=== PATIENT | female | born 1985 | race Caucasian/White ===

== ENCOUNTER 2016-07-29 06:25 | Emergency (ER) | payer BC, OTHER ==
[~2016-07-29] VITALS: Ht 160 cm; Wt 63.5 kg
[~2016-07-29 06:25] MED LIST: ACET50TA PO; FERR325T3 PO; IBUP-1114 PO; PRENTAB9 PO
[2016-07-29] MEDS ORDERED: MORPHINE 4 MG/ML 1ML SYRINGE IV ONE (07:30)
[2016-07-29] MEDS ORDERED: ONDANSETRON 4MG/2ML VIAL (J2405) IV ONE (07:30)
[2016-07-29 07:56] LABS: BASO % 0.2 % (0.0-1.0); EOS % 0.4 % (0.0-3.0); LARGE UNSTAINED CELL # 0.1 K/mm3 (0.0-0.4); LARGE UNSTAINED CELL % 1.1 % (0.0-4.0); LYMPH # 0.9 K/mm3 (1.5-4.5); LYMPH % 7.9 % (24.0-44.0); MEAN CORPUSCULAR HEMOGLOBIN 28.5 pg (27.0-33.0); MEAN CORPUSCULAR HGB CONC 33.7 g/dl (32.0-36.5); MEAN CORPUSCULAR VOLUME 84.6 fl (80.0-96.0); MONO # 0.5 K/mm3 (0.0-0.8); MONO % 4.4 % (0.0-5.0); NEUTROPHILS % 85.9 % (36.0-66.0); PLATELET COUNT, AUTOMATED 161 k/mm3 (150-450); RED CELL DISTRIBUTION WIDTH 12.5 % (11.5-14.5); WHITE BLOOD COUNT 10.5 K/mm3 (4.0-10.0)
[2016-07-29 08:02] LABS: CONTROL LINE HCG INT CTR LINE PRESENT
[2016-07-29 08:10] LABS: ALBUMIN 3.4 GM/DL (3.2-5.2); ALBUMIN/GLOBULIN RATIO 0.92 (1.00-1.93); ALKALINE PHOSPHATASE 44 U/L (45-117); ALT/SGPT 11 U/L (12-78); ANION GAP 8 MEQ/L (8-16); AST/SGOT 14 U/L (15-37); BILIRUBIN,DIRECT 0.2 MG/DL (0.0-0.2); BILIRUBIN,TOTAL 0.7 MG/DL (0.2-1.0); BLOOD UREA NITROGEN 8 MG/DL (7-18); CALCIUM LEVEL 8.7 MG/DL (8.5-10.1); CARBON DIOXIDE LEVEL 24 MEQ/L (21-32); CHLORIDE LEVEL 103 MEQ/L (98-107); GLOMERULAR FILTRATION RATE > 60.0 (>60); GLUCOSE, FASTING 99 MG/DL (70-105); POTASSIUM SERUM 3.7 MEQ/L (3.5-5.1); SODIUM LEVEL 135 MEQ/L (136-145); TOTAL PROTEIN 7.1 GM/DL (6.4-8.2)
--- NOTE | 2016-07-29 09:52 | REP ---
Flank pain, pleuritic chest pain. COMPARISON: Chest 11/24/2011 FINDINGS: Supine and upright views of the abdomen show the intestinal gas pattern to be nonspecific. Gas and stool is seen throughout the colon within the rectosigmoid region. The organ silhouettes insofar as delineated appear unremarkable. No abdominal calcific densities are seen within the abdomen or pelvis. The accompanying single frontal view of the chest shows no free subdiaphragmatic air, cardiomegaly, infiltrates or effusions. There are some vague right upper quadrant calcifications which may at least in part be chondrocalcifications. Exact etiology uncertain. IMPRESSION: Nonspecific intestinal gas pattern. Signed by Froy Bolanos DO 07/29/2016 10:20 A
[2016-07-29] MEDS ORDERED: CIPROFLOXACIN 400 MG in APPROPRIATE DILUENT 1 EA IV ONE (10:15)
--- NOTE | 2016-07-29 10:24 | REP ---
REASON: Left renal colic. COMPARISON: None. The lung bases are clear. Limited evaluation of a solid intra-abdominal organs and gallbladder show no gross abnormalities. There is no nephroureterolithiasis, hydronephrosis, or hydroureter. There are no urinary bladder calcifications. Limited evaluation of the bowel loops and their mesenteries show no gross abnormalities. There is no free fluid or free air in the abdomen. There is a trace amount of free pelvic fluid, probably physiologic. Bone window technique throughout the examination shows the osseous structures to be within normal limits. IMPRESSION: CT findings are within normal limits. There is incidental bilateral L5 spondylolysis. Signed by Froy Bolanos DO 07/29/2016 11:04 A
[2016-07-29] MEDS ORDERED: ACETAMINOPHEN 325 MG TAB PO ONE (12:15)
[2016-07-29] MEDS ORDERED: CIPR500T89 PO (12:40)
[2016-07-29] MEDS ORDERED: NORCOTAB PO (12:40)
[2016-07-29 13:57] VITALS: BP 105/55
== END 2016-07-29 14:05 | disposition home or self-care (01) ==
LOC: M ED 08:18
DX: N10 Acute pyelonephritis (principal)
CPT/HCPCS: 74022; 74176; 80048; 80076; 81001; 83690; 84703; 85025; 85379; 93041; 96365; 96366; 96375; 99285; J0744; J2405

== ENCOUNTER 2017-02-02 03:30 | Emergency (ER) | payer BC, OTHER ==
[~2017-02-02] VITALS: Ht 160 cm; Wt 65.9 kg
[~2017-02-02 03:30] MED LIST changes: +CIPR-249 PO; +NORCOTAB PO
[2017-02-02] MEDS ORDERED: DULO30CA PO (03:38)
[2017-02-02] MEDS ORDERED: diphenhydrAMINE INJ 50MG/ML VIAL (J1200) IV STA (04:20)
[2017-02-02] MEDS ORDERED: TETRACAINE 0.5% OPHTH SOLN 4ML OD ONE (04:30)
[2017-02-02] MEDS ORDERED: dexameTHASONE 20 MG/5 ML VIAL (J1100) IV ONE (04:30)
[2017-02-02] MEDS ORDERED: ACETAMINOPHEN 325 MG TAB PO ONE (04:30)
[2017-02-02] MEDS ORDERED: PRED20TA PO (04:36)
[2017-02-02 05:12] VITALS: BP 125/85
== END 2017-02-02 05:13 | disposition home or self-care (01) ==
LOC: M ED 03:30
DX: H11.421 Conjunctival edema, right eye (principal); H05.221 Edema of right orbit; F33.9 Major depressive disorder, recurrent, unspecified; Z79.899 Other long term (current) drug therapy; Z91.030 Bee allergy status
CPT/HCPCS: 96374; 96375; 99284; J1100; J1200

== ENCOUNTER → 2017-07-12 | Outpatient (CLI) | payer BC, OTHER ==
[2017-07-12 13:29] LABS: HEMATOCRIT 41.8 % (36.0-47.0); HEMOGLOBIN 14.1 g/dl (12.0-15.5); MEAN CORPUSCULAR HEMOGLOBIN 29.5 pg (27.0-33.0); MEAN CORPUSCULAR HGB CONC 33.7 g/dl (32.0-36.5); MEAN CORPUSCULAR VOLUME 87.4 fl (80.0-96.0); PLATELET COUNT, AUTOMATED 258 10^3/uL (150-450); RED BLOOD COUNT 4.78 10^6/uL (4.00-5.40); RED CELL DISTRIBUTION WIDTH 13.2 % (11.5-14.5); WHITE BLOOD COUNT 4.9 10^3/uL (4.0-10.0)
[2017-07-12 13:46] LABS: ALBUMIN 4.2 GM/DL (3.2-5.2); ALBUMIN/GLOBULIN RATIO 1.17 (1.00-1.93); ALKALINE PHOSPHATASE 55 U/L (45-117); ALT/SGPT 15 U/L (12-78); ANION GAP 6 MEQ/L (8-16); AST/SGOT 20 U/L (7-37); BILIRUBIN,TOTAL 0.9 MG/DL (0.2-1.0); BLOOD UREA NITROGEN 10 MG/DL (7-18); CALCIUM LEVEL 8.8 MG/DL (8.5-10.1); CARBON DIOXIDE LEVEL 28 MEQ/L (21-32); CHLORIDE LEVEL 105 MEQ/L (98-107); CREATININE FOR GFR 0.81 MG/DL (0.55-1.30); GLOMERULAR FILTRATION RATE > 60.0 (>60); GLUCOSE, FASTING 84 MG/DL (70-100); POTASSIUM SERUM 4.4 MEQ/L (3.5-5.1); SODIUM LEVEL 139 MEQ/L (136-145); TOTAL PROTEIN 7.8 GM/DL (6.4-8.2)
== END ==
LOC: M SMT 09:54
DX: F41.1 Generalized anxiety disorder (principal); Z13.0 Encounter for screening for diseases of the blood and blood-forming organs and certain disorders involving the immune mechanism
CPT/HCPCS: 84443

== ENCOUNTER → 2018-03-18 | Outpatient (CLI) | payer BC, OTHER ==
[2018-03-18 19:10] LABS: BASO % 0.3 % (0.0-1.0); EOS # 0.1 10^3/uL (0.0-0.50); EOS % 1.2 % (0.0-3.0); HEMOGLOBIN 14.1 g/dl (12.0-15.5); IMMATURE GRANULOCYTE % 0.2 % (0-3.0); LYMPH # 1.8 10^3/uL (1.5-4.5); LYMPH % 30.1 % (24.0-44.0); MEAN CORPUSCULAR HEMOGLOBIN 29.6 pg (27.0-33.0); MEAN CORPUSCULAR HGB CONC 34.4 g/dl (32.0-36.5); MEAN CORPUSCULAR VOLUME 86.1 fl (80.0-96.0); MONO # 0.3 10^3/uL (0.0-0.8); MONO % 5.2 % (0.0-5.0); NEUTROPHILS # 3.7 10^3/uL (1.8-7.7); PLATELET COUNT, AUTOMATED 249 10^3/uL (150-450); RED BLOOD COUNT 4.76 10^6/uL (4.00-5.40); RED CELL DISTRIBUTION WIDTH 12.4 % (11.5-14.5); WHITE BLOOD COUNT 5.9 10^3/uL (4.0-10.0)
[2018-03-18 19:25] LABS: ALBUMIN/GLOBULIN RATIO 1.29 (1.00-1.93); ALKALINE PHOSPHATASE 48 U/L (45-117); ALT/SGPT 16 U/L (12-78); ANION GAP 10 MEQ/L (8-16); AST/SGOT 17 U/L (7-37); BILIRUBIN,TOTAL 0.9 MG/DL (0.2-1.0); BLOOD UREA NITROGEN 9 MG/DL (7-18); CALCIUM LEVEL 8.7 MG/DL (8.5-10.1); CARBON DIOXIDE LEVEL 27 MEQ/L (21-32); CHLORIDE LEVEL 100 MEQ/L (98-107); CREATININE FOR GFR 0.88 MG/DL (0.55-1.30); FREE T4 1.07 NG/DL (0.76-1.46); GLOMERULAR FILTRATION RATE > 60.0 (>60); GLUCOSE, FASTING 68 MG/DL (70-100); POTASSIUM SERUM 4.1 MEQ/L (3.5-5.1); SODIUM LEVEL 137 MEQ/L (136-145); TOTAL 25(OH) VITAMIN D 34.7 NG/ML (30.0-100.0); TOTAL PROTEIN 7.1 GM/DL (6.4-8.2)
== END ==
LOC: M SMT 11:16
DX: E55.9 Vitamin D deficiency, unspecified (principal); Z13.0 Encounter for screening for diseases of the blood and blood-forming organs and certain disorders involving the immune mechanism; Z13.29 Encounter for screening for other suspected endocrine disorder
CPT/HCPCS: 84443

== ENCOUNTER → 2018-04-13 | Outpatient (CLI) | payer BC, OTHER ==
[~2018-04-13] MED LIST changes: -ACET50TA PO; +DULO30CA PO; +MAPA500T2 PO; +PRED20TA PO
--- NOTE | 2018-04-13 10:10 | REP ---
Clinical: Trauma/contusion. Technique: AP and lateral views of the right tibia / fibula. Findings: There is an acute oblique fracture of the mid/distal fibular shaft just above the orthopedic plate for prior fixation. No other fracture dislocation identified. Impression: Acute oblique fracture of the mid/distal fibular shaft above the level of orthopedic plate from old fixation. Electronically Signed by Mac Cardoso MD 04/13/2018 10:01 A
--- NOTE | 2018-04-16 11:47 | REP ---
Clinical: Trauma. Contusion. Technique: AP, lateral, bilateral oblique views of the right ankle. Findings: There is an acute oblique fracture of the mid fibular shaft just above the level of the plate and screws for prior fibular repair. No further acute fracture or dislocation identified. Old fractures of the distal fibular and medial malleolus noted. Impression: An acute oblique fracture of the mid fibular shaft just above the level of the orthopedic plate from prior fixation. Electronically Signed by Mac Cardoso MD 04/13/2018 09:59 A
== END ==
LOC: M WUC 09:40
PROVIDERS: ATTEND Physician Assistant
DX: S82.431A Displaced oblique fracture of shaft of right fibula, initial encounter for closed fracture (principal); X58.XXXA Exposure to other specified factors, initial encounter; Y92.9 Unspecified place or not applicable

== ENCOUNTER → 2018-06-12 | Outpatient (REF) | payer BC, OTHER ==
[2018-06-14 14:22] LABS: HPV HYBRID CAPTURE II Negative (Negative)
== END ==
LOC: M LAB REF 17:22
PROVIDERS: ATTEND Advanced Practice Midwife
DX: Z12.4 Encounter for screening for malignant neoplasm of cervix (principal); Z11.51 Encounter for screening for human papillomavirus (HPV)
CPT/HCPCS: 87624; G0123

== ENCOUNTER 2018-11-06 20:43 | Emergency (ER) | payer BC, OTHER ==
[~2018-11-06] VITALS: Ht 160 cm; Wt 61.4 kg
[~2018-11-06 20:43] MED LIST changes: -DULO30CA PO; +DULO30CA9 PO; +HYDR-3715 PO; -NORCOTAB PO
[2018-11-06] MEDS ORDERED: TRAZ-252 (20:48)
[2018-11-06] MEDS ORDERED: DULO1CAP5 (20:48)
[2018-11-06] MEDS ORDERED: AMPH1TAB2 (20:48)
[2018-11-06] MEDS ORDERED: EMLA CREAM 5GM (LIDOCAINE/PRILOCAINE) TOP ONE (21:45)
[2018-11-06] MEDS ORDERED: LIDOCAINE W/EPINEPHRINE 1% 20ML VIAL SC ONE (21:45)
--- NOTE | 2018-11-06 23:55 | REPVR ---
EXAM: CT Head Without Contrast EXAM DATE/TIME: 11/06/2018 11:03 PM CLINICAL HISTORY: 33 years old, female; Injury or trauma; Fall; Initial encounter; Bleeding / hemorrhage and blunt trauma (contusions or hematomas); Additional info: Trauma, right parietal TECHNIQUE: Imaging protocol: Computed tomography images of the head without contrast. Radiation optimization: All CT scans at this facility use at least one of these dose optimization techniques: automated exposure control; mA and/or kV adjustment per patient size (includes targeted exams where dose is matched to clinical indication); or iterative reconstruction. COMPARISON: No relevant prior studies available. FINDINGS: Brain: Ventricles, basilar cisterns, and sulci are normal in size for age. No intracranial mass, mass effect or midline shift. No acute intracranial hemorrhage. No focal effacement of cortical sulci to indicate acute cortical infarct. Ventricles: Normal. No ventriculomegaly. Bones/joints: No calvarial fracture or destructive process. Sinuses: Imaged paranasal sinuses are clear. Mastoid air cells: Mastoid air cells are normally aerated. Orbits: Imaged orbits are unremarkable. Soft tissues: Right posterior frontal vertex scalp laceration and extracranial scalp hematoma. IMPRESSION: Right posterior frontal vertex scalp injury. No underlying acute intracranial abnormality. Electronically signed by: Stephen Wells On 11/06/2018 23:54:42 PM
[2018-11-06] MEDS ORDERED: NAPR-837 PO (23:59)
[2018-11-07] MEDS ORDERED: ACETAMINOPHEN TAB 650MG DOSE (2X325MG) PO ONE
[2018-11-07] MEDS ORDERED: traMADol 50 MG TAB PO ONE
[2018-11-07 00:10] VITALS: BP 106/63
--- NOTE | 2018-11-07 01:57 | REP ---
Clinical: Trauma. Technique: AP, lateral, bilateral oblique views left foot . Findings: The osseous structures and joint spaces are intact and normal. There is no evidence for acute fracture or dislocation. Surrounding soft tissues are unremarkable. No subcutaneous emphysema or radiodense foreign body. Impression: Normal left foot series . No acute fracture or dislocation. Electronically Signed by Mac Cardoso MD 11/07/2018 01:50 A
--- NOTE | 2018-11-07 01:59 | REP ---
Clinical: thoracic pain. Technique: AP, lateral, and swimmers views. Findings: Alignment and kyphosis is maintained. Vertebral bodies intact. No acute fracture / compression injury or subluxation. No degenerative changes. Paravertebral soft tissues are normal. Impression: Normal thoracic spine series. Electronically Signed by Mac Cardoso MD 11/07/2018 01:50 A
--- NOTE | 2018-11-07 02:04 | REP ---
Clinical: Trauma. Technique: AP and axial views of the right scapula. Findings: No acute fracture or dislocation. Skeletal structures, joint spaces, and surrounding soft tissues are normal. Impression: No acute right scapular fracture noted. Electronically Signed by Mac Cardoso MD 11/07/2018 01:56 A
== END 2018-11-07 00:15 | disposition home or self-care (01) ==
LOC: M ED 20:43
DX: S01.01XA Laceration without foreign body of scalp, initial encounter (principal); S90.32XA Contusion of left foot, initial encounter; S43.401A Unspecified sprain of right shoulder joint, initial encounter; W11.XXXA Fall on and from ladder, initial encounter; Y92.9 Unspecified place or not applicable; Y93.9 Activity, unspecified; Y99.9 Unspecified external cause status; F41.9 Anxiety disorder, unspecified; Z79.899 Other long term (current) drug therapy; Z91.030 Bee allergy status

== ENCOUNTER → 2019-06-05 | Outpatient (CLI) | payer BC, OTHER ==
[~2019-06-05] MED LIST changes: +AMPH1TAB2; +DULO1CAP5; +NAPR-837 PO; +TRAZ-252
[2019-06-05 18:11] LABS: BASO # 0.1 10^3/uL (0.0-0.2); BASO % 0.7 % (0.0-1.0); EOS # 0.1 10^3/uL (0.0-0.5); EOS % 0.7 % (0.0-3.0); HEMATOCRIT 41.4 % (36.0-47.0); HEMOGLOBIN 13.8 g/dl (12.0-15.5); LYMPH # 2.1 10^3/uL (1.5-5.0); LYMPH % 30.1 % (24.0-44.0); MEAN CORPUSCULAR HEMOGLOBIN 29.7 pg (27.0-33.0); MEAN CORPUSCULAR HGB CONC 33.3 g/dl (32.0-36.5); MONO # 0.3 10^3/uL (0.0-0.8); MONO % 4.7 % (0.0-5.0); NEUTROPHILS # 4.3 10^3/uL (1.5-8.5); NEUTROPHILS % 63.7 % (36.0-66.0); PLATELET COUNT, AUTOMATED 250 10^3/uL (150-450); RED BLOOD COUNT 4.65 10^6/uL (4.00-5.40); WHITE BLOOD COUNT 6.8 10^3/uL (4.0-10.0)
[2019-06-05 18:21] LABS: ALBUMIN 4.1 GM/DL (3.2-5.2); ALT/SGPT 22 U/L (12-78); BILIRUBIN,TOTAL 0.7 MG/DL (0.2-1.0); BLOOD UREA NITROGEN 16 MG/DL (7-18); C REACTIVE PROTEIN QUANTITATIV < 0.30 MG/DL (0.00-0.30); CALCIUM LEVEL 8.8 MG/DL (8.5-10.1); CARBON DIOXIDE LEVEL 27 MEQ/L (21-32); CHLORIDE LEVEL 108 MEQ/L (98-107); FREE T4 1.03 NG/DL (0.76-1.46); GLOMERULAR FILTRATION RATE > 60.0 (>60); GLUCOSE, FASTING 86 MG/DL (70-100); POTASSIUM SERUM 3.8 MEQ/L (3.5-5.1); RHEUMATOID FACTOR QUANT < 10.0 IU/ML (<15.0); SODIUM LEVEL 140 MEQ/L (136-145); THYROID STIMULATING HORMONE 0.843 uIU/ML (0.358-3.740)
[2019-06-05 18:24] LABS: TOTAL 25(OH) VITAMIN D 52.5 NG/ML (30.0-100.0)
[2019-06-05 18:44] LABS: ERYTHROCYTE SEDIMENTATION RATE 3 mm/hr (0-20)
== END ==
LOC: M PLALAB 14:00
PROVIDERS: ATTEND Physician Assistant
DX: M25.50 Pain in unspecified joint (principal); E55.9 Vitamin D deficiency, unspecified

== ENCOUNTER → 2019-06-23 | Outpatient (CLI) | payer OTHER | LOC: M OUTALCOH 08:00 | PROVIDERS: ATTEND Psychiatry & Neurology Addiction Medicine | DX: F10.20 Alcohol dependence, uncomplicated (principal) ==

== ENCOUNTER → 2019-07-15 | Outpatient (RCR) | payer OTHER | LOC: M OUTALCOH 07-01 10:54 | PROVIDERS: ATTEND Psychiatry & Neurology Addiction Medicine | DX: F10.20 Alcohol dependence, uncomplicated (principal) ==

== ENCOUNTER 2019-07-21 14:00 | Outpatient (RCR) | payer OTHER | END 2019-08-14 | LOC: M OUTALCOH 14:00 | PROVIDERS: ATTEND Psychiatry & Neurology Addiction Medicine | DX: F10.20 Alcohol dependence, uncomplicated (principal) ==

== ENCOUNTER → 2019-07-23 | Outpatient (CLI) | payer OTHER ==
[2019-07-23 08:40] LABS: ALBUMIN 3.9 GM/DL (3.2-5.2); ALT/SGPT 24 U/L (12-78); BILIRUBIN,TOTAL 0.4 MG/DL (0.2-1.0); BLOOD UREA NITROGEN 12 MG/DL (7-18); CALCIUM LEVEL 9.3 MG/DL (8.5-10.1); CARBON DIOXIDE LEVEL 29 MEQ/L (21-32); CHLORIDE LEVEL 103 MEQ/L (98-107); CREATININE FOR GFR 0.85 MG/DL (0.55-1.30); ETHYL ALCOHOL (ETHANOL) 0.003 % (0.000-0.010); GLOMERULAR FILTRATION RATE > 60.0 (>60); GLUCOSE, FASTING 115 MG/DL (70-100); POTASSIUM SERUM 4.2 MEQ/L (3.5-5.1); SODIUM LEVEL 137 MEQ/L (136-145); TOTAL PROTEIN 7.1 GM/DL (6.4-8.2)
== END ==
LOC: M LAB 07:51
PROVIDERS: ATTEND Physician Assistant
DX: Z69.11 Encounter for mental health services for victim of spousal or partner abuse (principal)
CPT/HCPCS: 36415; 80053; G0480

== ENCOUNTER → 2019-11-03 | Outpatient (CLI) | payer BC ==
--- NOTE | 2019-11-03 15:00 | REPMRS ---
Patient History The patient states she had a clinical breast exam in October 2019. Family history of non hodgkin's lymphoma at age 17 in son. Diagnostic Bilateral Mammo: November 03, 2019 - Exam #: [id number] Bilateral CC and MLO view(s) were taken. Technologist: Roxanna Rios, Technologist FINDINGS: The breast tissue is heterogeneously dense. This may lower the sensitivity of mammography. The Volpara volumetric breast density category is: C. There are a few scattered benign secretory calcifications bilaterally. There is no evidence of dominant mass, architectural distortion, or grouped microcalcification typical of malignancy. 3-D tomosynthesis shows no additional findings. Assessment: BI-RADS/ACR category 2 mammogram. Benign Findings. Recommendation Routine screening mammogram of both breasts in 1 year (for women over age 40). This patient's Lifetime Breast Cancer RIsk is estimated at 9.2 %. This mammogram was interpreted with the aid of an FDA-approved computer-aided dectection system. Electronically Signed By: Angel Mcpherson MD 11/03/19 [id number]
== END ==
LOC: M WHC 14:12
PROVIDERS: ATTEND Advanced Practice Midwife
DX: Z12.31 Encounter for screening mammogram for malignant neoplasm of breast (principal); N64.3 Galactorrhea not associated with childbirth; Z80.7 Family history of other malignant neoplasms of lymphoid, hematopoietic and related tissues
CPT/HCPCS: 77066; G0279

== ENCOUNTER → 2020-01-05 | Outpatient (CLI) | payer BC, OTHER ==
--- NOTE | 2020-01-14 10:01 | REP ---
SACRUM AND COCCYX SERIES CLINICAL: Contusion TECHNIQUE: AP and lateral views of the sacrum and coccyx. FINDINGS: Lateral view demonstrates fragmented appearance to the sacrococcygeal region some of which appears well-corticated. These findings are nonspecific and may represent old injury rather than acute injury, although correlation is required. Bilateral sacroiliac joints appear intact. Sacral ala appear intact. IMPRESSION: Somewhat fragmented appearance to the distal sacrum and coccyx may represent old versus acute injury. MTDD
--- NOTE | 2020-01-14 10:02 | REP ---
PELVIC RADIOGRAPH CLINICAL: Contusion. TECHNIQUE: Single AP view of the pelvis. FINDINGS: Osseous structures are intact. Bilateral sacroiliac joints and hip joints are symmetric and normal. No acute fracture or dislocation. No subcutaneous emphysema or foreign body. IMPRESSION: Normal pelvic radiograph. MTDD
--- NOTE | 2020-01-14 10:03 | REP ---
LUMBOSACRAL SPINE SERIES CLINICAL: Contusion to the lower back. TECHNIQUE: AP, lateral, bilateral oblique, and coned down views of the lumbosacral spine. FINDINGS: Alignment and lordosis maintained. Vertebral bodies intact. No acute fracture/compression injury or subluxation. IMPRESSION: Normal lumbosacral spine series. No evidence for acute fracture/compression injury or subluxation. MTDD
== END ==
LOC: M WUC 15:54
PROVIDERS: ATTEND Physician Assistant
DX: S30.0XXA Contusion of lower back and pelvis, initial encounter (principal); X58.XXXA Exposure to other specified factors, initial encounter; Y92.89 Other specified places as the place of occurrence of the external cause

== ENCOUNTER → 2020-04-07 | Outpatient (CLI) | payer BC, OTHER ==
[~2020-04-07] MED LIST changes: +IBUP80TA PO; +VITAPRTA PO
--- NOTE | 2020-04-14 11:42 | ECHO ---
DATE OF PROCEDURE: 04/07/2020 Age: 34 Gender: Female Height: Weight: REFERRING PHYSICIAN: Frederic Darden PA-C PATIENT LOCATION: Outpatient. REASON FOR STUDY: Hypermobility syndrome, aortic root dilatation. 2D MEASUREMENTS: IVS 0.8 cm LV 3.9 cm LVPW 0.8 cm LA 2.9 cm Aorta/aortic root 3.2 cm IVC 1.4 cm DOPPLER MEASUREMENT Peak velocity across the aortic valve 0.99 msec Peak velocity across the LVOT 0.97 msec Mitral E 0.86 Mitral A 0.49 with a ratio of 1.7 Maximum tricuspid valve velocity 2.2 msec 2D COMMENTS: * Normal left ventricle size, wall thickness, and normal global left ventricular systolic function. The estimated left ventricular systolic ejection fraction is 60% to 65%. * Normal left atrium. Normal right atrium and right ventricle. * The atrial septum appeared to be normal without evidence of defect or shunt. * Normal aortic root. * No pericardial effusion seen. * The aortic valve, mitral valve, tricuspid valve, and pulmonic valve appear to be normal. The proximal pulmonary artery branches were not well visualized. * The inferior vena cava was normal in size. Central venous pressure is most likely normal. MTDD
== END ==
LOC: M CARPUL 09:11
PROVIDERS: ATTEND Physician Assistant
DX: M35.7 Hypermobility syndrome (principal)

== ENCOUNTER 2020-11-22 12:58 | Emergency (ER) | payer BC, OTHER ==
[~2020-11-22] VITALS: Ht 160 cm; Wt 63.3 kg
[2020-11-22] MEDS ORDERED: CITA20TA7 (13:17)
[2020-11-22] MEDS ORDERED: NS 1,000 ML IV ONE ×2 (16:40)
[2020-11-22 18:01] LABS: HEMATOCRIT 38.6 % (36.0-47.0); HEMOGLOBIN 13.3 g/dl (12.0-15.5); MEAN CORPUSCULAR HEMOGLOBIN 31.3 pg (27.0-33.0); MEAN CORPUSCULAR HGB CONC 34.5 g/dl (32.0-36.5); MEAN CORPUSCULAR VOLUME 90.8 fl (80.0-96.0); PLATELET COUNT, AUTOMATED 197 10^3/uL (150-450); RED BLOOD COUNT 4.25 10^6/uL (4.00-5.40); WHITE BLOOD COUNT 3.7 10^3/uL (4.0-10.0)
[2020-11-22 18:32] LABS: ALBUMIN 3.7 GM/DL (3.2-5.2); ALT/SGPT 56 U/L (12-78); BILIRUBIN,TOTAL 0.7 MG/DL (0.2-1.0); BLOOD UREA NITROGEN 10 MG/DL (7-18); CARBON DIOXIDE LEVEL 31 MEQ/L (21-32); CHLORIDE LEVEL 101 MEQ/L (98-107); CREATININE FOR GFR 0.61 MG/DL (0.55-1.30); GLOMERULAR FILTRATION RATE > 60.0 (>60); GLUCOSE, FASTING 79 MG/DL (70-100); MAGNESIUM LEVEL 2.1 MG/DL (1.8-2.4); POTASSIUM SERUM 3.4 MEQ/L (3.5-5.1); SODIUM LEVEL 139 MEQ/L (136-145)
[2020-11-22] MEDS ORDERED: POTASSIUM CHLORIDE 10 MEQ SR TABLET PO ONE (18:45)
--- NOTE | 2020-11-22 19:26 | ECGEPIP ---
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
[2020-11-22 20:00] VITALS: BP 159/89
[2020-11-22] MEDS ORDERED: POTA20TA6 PO (20:30)
== END 2020-11-22 20:49 | disposition home or self-care (01) ==
LOC: M ED 12:58
DX: E86.0 Dehydration (principal); E87.6 Hypokalemia; F33.9 Major depressive disorder, recurrent, unspecified; Z79.899 Other long term (current) drug therapy; Z91.030 Bee allergy status

== ENCOUNTER 2020-12-28 14:03 | Emergency (ER) | payer BC, OTHER ==
[~2020-12-28] VITALS: Ht 160 cm; Wt 67.7 kg
[~2020-12-28 14:03] MED LIST changes: +CITA20TA7; +POTA20TA6 PO
[2020-12-28 19:14] LABS: RSV AMPLIFICATION NEGATIVE (NEGATIVE)
[2020-12-28] MEDS ORDERED: NS 1,000 ML IV ONE (19:15)
[2020-12-28] MEDS ORDERED: KETOROLAC 30 MG/ML 1ML VIAL IV ONE (19:15)
[2020-12-28] MEDS ORDERED: ONDANSETRON 4MG/2ML VIAL IV ONE (19:15)
[2020-12-28 20:37] LABS: BASO # 0.1 10^3/uL (0.0-0.2); BASO % 0.5 % (0.0-1.0); EOS % 0.1 % (0.0-3.0); HEMATOCRIT 49.4 % (36.0-47.0); HEMOGLOBIN 16.4 g/dl (12.0-15.5); LYMPH # 1.1 10^3/uL (1.5-5.0); LYMPH % 11.4 % (24.0-44.0); MEAN CORPUSCULAR HEMOGLOBIN 30.9 pg (27.0-33.0); MEAN CORPUSCULAR HGB CONC 33.2 g/dl (32.0-36.5); MONO # 0.5 10^3/uL (0.0-0.8); MONO % 5.6 % (2.0-8.0); NEUTROPHILS # 7.7 10^3/uL (1.5-8.5); PLATELET COUNT, AUTOMATED 299 10^3/uL (150-450); RED BLOOD COUNT 5.31 10^6/uL (4.00-5.40); WHITE BLOOD COUNT 9.3 10^3/uL (4.0-10.0)
--- NOTE | 2020-12-28 20:44 | REPVR ---
PROCEDURE INFORMATION: Exam: US Abdomen, Limited; Right Upper Quadrant Exam date and time: 12/28/2020 8:07 PM Age: 35 years old Clinical indication: Nausea and vomiting; Additional info: Ruq abd pain, nv TECHNIQUE: Imaging protocol: US abdomen. Real time ultrasound with image documentation. Limited exam focused on the right upper quadrant. COMPARISON: CT ABD PELVIS W/O CONTRAST 07/29/2016 9:47 AM FINDINGS: Liver: Normal. No masses. Gallbladder: Normal. No gallstones. There is no gallbladder wall thickening. Common bile duct: The common bile duct measures 3 mm. No mass or choledocholithiasis. Pancreas: Visualized pancreas is unremarkable. Right kidney: Right kidney measures 10 x 5.2 x 4.2 cm. IMPRESSION: Unremarkable scan. No acute findings. Electronically signed by: Yasir Lockett On 12/28/2020 20:44:11 PM
[2020-12-28 20:59] LABS: ALBUMIN 4.7 GM/DL (3.2-5.2); BILIRUBIN,DIRECT 0.2 MG/DL (0.0-0.2); BILIRUBIN,TOTAL 0.7 MG/DL (0.2-1.0)
[2020-12-28 21:22] LABS: POTASSIUM SERUM 5.3 MEQ/L (3.5-5.1)
[2020-12-28] MEDS ORDERED: PANTOPRAZOLE 40MG VIAL (C9113 PER 1) IV ONE (23:35)
[2020-12-28] MEDS ORDERED: GI COCKTAIL 50ML BTL(HYOSCYAMINE/MAALOX/LIDOCAINE VISCOUS)(1:3:1) PO ONE (23:35)
[2020-12-28] MEDS ORDERED: SUCRALFATE 1 GM TAB PO ONE (23:35)
--- NOTE | 2020-12-28 23:50 | REPVR ---
PROCEDURE INFORMATION: Exam: XR Chest Exam date and time: 12/28/2020 11:05 PM Age: 35 years old Clinical indication: Shortness of breath; Additional info: SOB, cp TECHNIQUE: Imaging protocol: XR of the chest. Views: 1 view. COMPARISON: CR Abdomen,Flat Upright,PA CHEST 07/29/2016 8:44 AM FINDINGS: Lungs: Unremarkable. No consolidation. Pleural spaces: Unremarkable. No pleural effusion. No pneumothorax. Heart/Mediastinum: Unremarkable. No cardiomegaly. Bones/joints: Unremarkable. Soft tissues: There are bilateral nipple rings. IMPRESSION: No acute cardiopulmonary process. Electronically signed by: Tom Vilchis On 12/28/2020 23:49:40 PM
[2020-12-29] MEDS ORDERED: FAMO20TA PO (00:03)
[2020-12-29] MEDS ORDERED: ONDA4TAB6 PO (00:03)
[2020-12-29 00:50] VITALS: BP 114/56
== END 2020-12-29 00:54 | disposition home or self-care (01) ==
LOC: M ED 14:03
DX: R10.13 Epigastric pain (principal); R11.2 Nausea with vomiting, unspecified; Z79.899 Other long term (current) drug therapy
CPT/HCPCS: 71045; 76705; 80047; 80076; 83690; 84132; 84702; 85025; 85379; 87631; 96361; 96374; 96375; 99284; C9113; J1885; J2405

== ENCOUNTER 2023-11-16 17:11 | Emergency (ER) | payer BC, OTHER, SELFPAY ==
[~2023-11-16] VITALS: Ht 157.5 cm; Wt 59.1 kg
[~2023-11-16 17:11] MED LIST changes: +FAMO20TA PO; +ONDA-282 PO; +POTA-151 PO; -POTA20TA6 PO
[2023-11-16 17:16] VITALS: BP 144/93; TEMP 98.2; O2SAT 99
[2023-11-17] MEDS: NS 1,000 ML IV ONE ×2 (01:55→02:08)
[2023-11-17] MEDS: METOCLOPRAMIDE INJ 10MG/2ML VIAL IV ONE (02:13)
[2023-11-17] MEDS: FAMOTIDINE 20MG/2ML VIAL IVP ONE (02:13)
[2023-11-17 02:24] LABS: BASO % 0.5 % (0.0-1.0); EOS # 0.1 10^3/uL (0.0-0.5); EOS % 1.4 % (0.0-3.0); HEMOGLOBIN 15.4 g/dl (12.0-15.5); LYMPH % 33.4 % (24.0-44.0); MEAN CORPUSCULAR VOLUME 91.3 fl (80.0-96.0); MONO # 0.4 10^3/uL (0.0-0.8); MONO % 6.6 % (2.0-8.0); NEUTROPHILS # 3.4 10^3/uL (1.5-8.5); NEUTROPHILS % 57.8 % (36.0-66.0); PLATELET COUNT, AUTOMATED 224 10^3/uL (150-450); RED BLOOD COUNT 4.82 10^6/uL (4.00-5.40); WHITE BLOOD COUNT 5.9 10^3/uL (4.0-10.0)
[2023-11-17 02:45] LABS: CPK CREATINE PHOSPHOKINASE 267 U/L (34-145); PHOSPHORUS LEVEL 3.2 MG/DL (2.5-4.9)
[2023-11-17 02:57] LABS: BLOOD UREA NITROGEN 10 MG/DL (9-23); CALCIUM LEVEL 9.8 MG/DL (8.5-10.1); CARBON DIOXIDE LEVEL 26 MMOL/L (20-31); CHLORIDE LEVEL 92 MMOL/L (98-107); CREATININE FOR GFR 0.74 MG/DL (0.55-1.30); GLOMERULAR FILTRATION RATE > 60.0 (>60); GLUCOSE, FASTING 67 MG/DL (60-100); POTASSIUM SERUM 2.8 MMOL/L (3.5-5.1); SODIUM LEVEL 132 MMOL/L (136-145)
[2023-11-17] MEDS: POTASSIUM CHLORIDE 10% LIQ 20MEQ/15ML UDC PO ONE ×2 (03:15→04:08)
== END 2023-11-17 06:35 | disposition short-term general hospital (02) ==
LOC: M ED 17:11
DX: E86.0 Dehydration (principal); E87.6 Hypokalemia; Z79.899 Other long term (current) drug therapy; Z91.030 Bee allergy status
CPT/HCPCS: 36415; 71046; 80048; 82550; 83735; 84100; 85025; 93005; 93041; 94760; 96374; 96375; 99284; J2765; S0028

== ENCOUNTER → 2024-02-20 | Outpatient (CLI) | payer MEDICAID, OTHER, SELFPAY ==
[~2024-02-20] MED LIST changes: +GASTROGRAFIN SOLUTION 30ML As Ordered ONE; +ISOVUE-370 76% 100ML VIAL As Ordered ONE
== END ==
LOC: M RAD 10:14
PROVIDERS: ATTEND Physician Assistant
DX: R74.8 Abnormal levels of other serum enzymes (principal)
CPT/HCPCS: 74177; Q9963; Q9967